=== PATIENT | female | born 1965 | race Caucasian/White ===

== ENCOUNTER 2024-03-29 11:13 | Outpatient (CLI) | payer BC ==
[~2024-03-29 11:13] MED LIST: Iopamidol 300 61% 100 ML VIAL FS ONE
== END 2024-03-29 11:14 | disposition home or self-care (01) ==
LOC: CSHCT 11:13
PROVIDERS: ATTEND Nurse Practitioner Family
DX: K57.90 Diverticulosis of intestine, part unspecified, without perforation or abscess without bleeding (principal); R10.32 Left lower quadrant pain; R82.90 Unspecified abnormal findings in urine; R07.81 Pleurodynia; K80.20 Calculus of gallbladder without cholecystitis without obstruction
CPT/HCPCS: 74178; Q9967